=== PATIENT | male | born 1970 | race Caucasian/White ===

== ENCOUNTER 2016-07-05 09:34 | Day surgery (SDC) | payer OTHER ==
[~2016-07-05] VITALS: Ht 167.6 cm; Wt 84.0 kg
--- NOTE | ~2016-07-05 | OR ---
PATIENT'S NAME: MARY ALLEN [facility] AGE: 45 Y [address] ROOM: [address] [address] LOCATION: [facility] [place] ADMIT DATE: 07/05/2016 OR/Procedure Report DISCHARGE DATE: FAMILY PHYSICIAN: Herberth Singh MD ATTENDING PHYSICIAN: Christina Figueroa SURGEON: Christina Figueroa MD FLARE MAKER: Alejandra Johnson. DATE OF PROCEDURE: 07/05/2016 PREOPERATIVE DIAGNOSIS: Cervical spondylosis with radiculopathy. POSTOPERATIVE DIAGNOSIS: Cervical spondylosis with radiculopathy. PROCEDURES PERFORMED: 1. Anterior cervical diskectomy with decompression of neural elements and foraminotomy at C5-C6. 2. Anterior cervical diskectomy with decompression of neural elements and foraminotomy at C6-C7. 3. Use of structural allograft bone for fusion at C5-C6. 4. Use of structural allograft bone for fusion at C6-C7. 5. Use of anterior cervical plate from C5 to C7. 6. Use of intraoperative microscope. ANESTHESIA: General. ANESTHESIA PROVIDER: Tigre Sainz M.D. HISTORY: The patient is a 45-year-old gentleman, who developed pain in his neck associated with pain going down the arms, especially the left arm all the way to the fingers. The patient had an MRI of the cervical spine, which showed cervical spondylosis with narrowing of the nerve root foramina on the left side at C5-C6 and C6-C7. The patient was seen in the clinic and the surgery was recommended. The above procedure along with the benefits and risks were discussed with the patient before the surgery. With his consent, he was taken to the operating room for surgery. PROCEDURE IN DETAIL: In the operating room, the patient was placed in a supine position, anesthesia was induced, and he was intubated. An incision line was marked out along the anterior border of the right sternomastoid muscle. The whole area was prepped and draped in a sterile fashion. Local anesthesia was infiltrated along the incision line. The #10 blade was used to open the incision and to deepen it through the platysma until the anterior border of the sternomastoid became visible. Further exploration along the anterior border of the sternomastoid revealed the omohyoid muscle. Dissecting the gap between the sternomastoid and omohyoid muscles, a plane was developed, PATIENT'S NAME: MARY ALLEN [facility] AGE: 45 Y [address] ROOM: [id number] [place], [place] [address] LOCATION: [facility] ADMIT DATE: 07/05/2016 OR/Procedure Report DISCHARGE DATE: FAMILY PHYSICIAN: Herberth Singh MD ATTENDING PHYSICIAN: Christina Figueroa which brought us nicely to the anterior surface of the spine. The carotid sheath was retracted laterally while the esophagus and trachea were retracted medially. Intraoperative x-ray was obtained to confirm that we have the right levels. Diskectomy was then carried out at C5-C6 and C6-C7. The technique for the diskectomy was the same for both levels and will be described for one level as representing both of them. First, the belt dresser retractors were inserted under the longus colli muscles. The longus colli muscles had been dissected off the anterior surface of the spine. Once the belt dresser retractors were anchored and x-ray confirmation had been obtained, the disk space was incised with a #15 blade. Pituitary rongeur was then used to pull out disk material. The angled curette was used to curette out more disk, which was again removed with a pituitary rongeur. This continued until we got into the depths of the disk space. The distraction pins were then inserted to help visualization in the depths of the disk space. Some of the posterior osteophytes had to be drilled down. The posterior longitudinal ligament was opened and using the #2 [place], the posterior osteophytes were removed. The left foramina at C5-C6 and C6-C7 were considerably worse as had been seen on the MRI scan. Working very carefully, the central canal as well as the nerve root exits were decompressed at both levels. Next, the endplates were drilled down in preparation for fusion. Appropriate sized pieces of bone graft were selected and inserted into each disk space. We had a very snug fit. Next, the Tempus plate by Caldwell was used to reinforce the fusion. Two screws were attached to C5, C6, and C7. Another x-ray was obtained to confirm that the graft, screws, and plates were in satisfactory position. Irrigation was used to wash out the debris and the incision was closed with appropriate suture materials. A sterile dressing was applied. I was present at and performed every aspect of the above procedure, assisted at some stages by operating room nurses. There were no apparent intraoperative complications. Swabs, needles, and instruments were all accounted for at the end of the case. Estimated blood loss was about 100 or 200 mL and there was no reason for blood transfusion. I expect the patient to benefit from this procedure. CHRISTINA FIGUEROA MD CNO/modl PATIENT'S NAME: MARY ALLEN [facility] AGE: 45 Y [address] ROOM: [place] [address] LOCATION: [facility] ADMIT DATE: 07/05/2016 OR/Procedure Report DISCHARGE DATE: FAMILY PHYSICIAN: Herberth Singh MD ATTENDING PHYSICIAN: Christina Figueroa /[id number] CC: Hugh Zee MD d: 07/06/16 0135 t: 07/12/16 0903, OPERATIVE SUMMARY
[~2016-07-05 09:34] MED LIST: ULTRAM50 MG PO; ZOLOFT100 MG PO
--- NOTE | 2016-07-05 19:03 | NUR ---
Significant Event: Pt was recieved from PACU at 1605. Pt has a dressing to right anterior neck that is dry and intact. Peripheral pulses 2+. Pt reported numbness and tingling preop that continues now. He reports that he had pain and weakness to left arm that is slightly improved from preop. Pt had norco 2 tabs last at 1450 and toradol at 1400. He requested a nicotine patch, applied to right deltoid. VSS, 92-97% on room air.
--- NOTE | 2016-07-06 04:42 | NUR ---
Pt transfered to [facility] yesterday after ACDF C5-6 C6-7 surgery. Pt able to move without difficulty. Independent. Pt voided @2200 last night. Reports numbness and tingling on fingers, more on the left. Mild to moderate pain, ratings mostly between 3-5. Tramadol given @ 2145 and last dose of [place] given at 0405. VS WNL. Pt on room air.
--- NOTE | 2016-07-06 05:27 | NUR ---
I have reviewed all of SN Lawson from [facility]'s charting on this patient and I agree with it.
[2016-07-06] MEDS ORDERED: NORCO 5-325 TA1 EACH PO (14:27)
--- NOTE | 2016-07-06 16:02 | NUR ---
pt given discharge instructions and voices understanding. medications and dressing reviewed. shower guards sent with pt. escorted to the front door by this nurse.
[2016-09-09] MEDS ORDERED: CLINORIL200 MG PO (14:27)
== END 2016-07-06 15:00 | disposition disaster alternative care site (69) ==
LOC: GSDC 09:34 → GMSU 09:34 → GSDC 13:00 → GMSU 15:03 → GSDC 07-06 15:00
PROC: 0RG20J0 Fusion of 2 or more Cervical Vertebral Joints with Synthetic Substitute, Anterior Approach, Anterior Column, Open Approach (ICD-10-PCS; principal; 2016-07-05)
DX: M47.22 Other spondylosis with radiculopathy, cervical region (principal); M50.122 Cervical disc disorder at C5-C6 level with radiculopathy; M50.123 Cervical disc disorder at C6-C7 level with radiculopathy; F17.200 Nicotine dependence, unspecified, uncomplicated; Z88.0 Allergy status to penicillin; Z79.899 Other long term (current) drug therapy
CPT/HCPCS: C1713; J1100; J2250; J2405; J3010; J3370; J7030

== ENCOUNTER → 2016-09-11 | Day surgery (SDC) | payer OTHER ==
[~2016-09-11] VITALS: Ht 167.6 cm; Wt 82.1 kg
[~2016-09-11] MED LIST changes: +CLINORIL200 MG PO; +NORCO 5-325 TA1 EACH PO
--- NOTE | ~2016-09-11 | OR ---
PATIENT'S NAME: MARY ALLEN [facility] AGE: 45 Y [address] ROOM: [place] [address] LOCATION: [facility] [place] ADMIT DATE: 09/11/2016 OR/Procedure Report DISCHARGE DATE: FAMILY PHYSICIAN: Herberth Singh MD ATTENDING PHYSICIAN: Christina Zazueta SURGEON: Christina Zazueta MD SLOT SHIFT MANAGER: Scout Sullivan. DATE OF PROCEDURE: 09/11/2016 PREOPERATIVE DIAGNOSIS: Hardware failure, anterior cervical plate. POSTOPERATIVE DIAGNOSIS: Hardware failure, anterior cervical plate. PROCEDURE PERFORMED: Removal of anterior cervical plate, used for cervical spine fusion. ANESTHESIA: General. HISTORY: This patient is a 45-year-old male, who had undergone anterior cervical diskectomy with fusion and instrumentation. On followup in the clinic, the patient was noted to have some loosening of one of his screws of his anterior cervical plate. Subsequent imaging showed that the screw was continuing to back out. It was therefore necessary to remove the plate. There was concern that if the screw continued to back out, it may start to affect the patient's esophagus or other structures in his neck. The procedure risks and benefits were discussed with the patient and with his consent, he was brought to the operating room for surgery. PROCEDURE IN DETAIL: In the operating room, the patient was placed in a supine position. Anesthesia was induced and he was intubated. A roll was placed under his shoulders and his head was cradled in a doughnut. The incision line was marked out along the anterior border of the sternomastoid muscle on the right side basically using the old incision. The whole area was prepped and draped in a sterile fashion. Local anesthesia was infiltrated. The incision was opened with a #10 blade. Dissection was carried out along the anterior surface of the sternomastoid muscle until the omohyoid muscle was seen. Dissection was carried out between the omohyoid and sternomastoid muscles until we got to the anterior surface of the spine. As dissection progressed, the cervical plate became visible and the loose screw was seen. On further examination, it appeared that most of the screws were not as secure as it could be. I therefore decided to remove the entire plate. The patient's fusion was already solid and there was no particular need for the plate any longer. PATIENT'S NAME: MARY ALLEN [facility] AGE: 45 Y [address] ROOM: [place] [address] LOCATION: [facility] [place] ADMIT DATE: 09/11/2016 OR/Procedure Report DISCHARGE DATE: FAMILY PHYSICIAN: Herberth Singh MD ATTENDING PHYSICIAN: Chirstina Zazueta The screws were loosened of the plate and screws were removed. There were no complications. Irrigation was used to wash out the area and hemostasis was achieved. The incision was closed with appropriate suture materials. A sterile dressing was applied. The patient's anesthesia was reversed. He was extubated and taken to the recovery room to complete his recovery. I was present at and performed every aspect of this procedure, assisted at some stages by operating room nurses. There were no apparent intraoperative complications. Swabs, needles, and instruments were all accounted for at the end of the case. Estimated blood loss was less than 100 mL and there was no reason for blood transfusion. I expect the patient to benefit from this procedure. With the screw being removed, there will be less risk of injury to structures in his throat. MD CHAVA GRULLONO/modl /[id number] d: 09/17/16 2329 t: 09/18/16 1948, OPERATIVE SUMMARY
== END | disposition disaster alternative care site (69) ==
LOC: GPOC 09-09 14:00 → GSDC 05:40
PROC: 0PP304Z Removal of Internal Fixation Device from Cervical Vertebra, Open Approach (ICD-10-PCS; principal; 2016-09-11)
DX: T84.226A Displacement of internal fixation device of vertebrae, initial encounter (principal); E78.00 Pure hypercholesterolemia, unspecified; F17.210 Nicotine dependence, cigarettes, uncomplicated; Z88.0 Allergy status to penicillin; Z79.899 Other long term (current) drug therapy; Z98.890 Other specified postprocedural states
CPT/HCPCS: J1100; J2001; J2405; J3010; J3370; J7120

== ENCOUNTER → 2016-10-09 | Outpatient (CLI) | payer OTHER | END | disposition disaster alternative care site (69) | LOC: GRAD 08:39 | DX: M50.10 Cervical disc disorder with radiculopathy, unspecified cervical region (principal); M50.20 Other cervical disc displacement, unspecified cervical region; M47.22 Other spondylosis with radiculopathy, cervical region; Z98.1 Arthrodesis status; Z98.890 Other specified postprocedural states ==